=== PATIENT | female | born 1950 | race Caucasian/White ===

== ENCOUNTER 2017-08-29 18:24 | Emergency (ER) | payer OTHER, MEDICARE ==
[2017-08-29 20:29] VITALS: TEMP 210.9
--- NOTE | 2017-08-29 20:32 | EDPHY ---
H & P Time Seen by Provider: 08/29/17 19:20 HPI/ROS: HPI Esophageal pain. History of EGD. 67-year-old female by private vehicle. This patient reports that today at 2:30 p.m. she had an upper GI endoscopy by Dr. Victor Hugo Laurent [facility]. She reports that about 2 hr after this she ate some solid food as well as drink some liquids. She reports she was able to swallow these without significant difficulty but right after she swallowed them she developed a spasming pain in her esophagus which radiated up into her throat and neck. This was then resolved but repeated itself when went swallowing solids and liquids as above. She called the on-call food service aide was told to come to the emergency department to be evaluated for possible perforation. ROS: Constitutional: No fever, no chills. No weakness. Eyes: No discharge. No changes in vision. ENT: No sore throat. As above. Respiratory: No cough. No shortness of breath. Cardiac: No chest pain, no palpitations. As above. Gastrointestinal: No abdominal pain, no vomiting, no diarrhea. Genitourinary: No hematuria. No dysuria or increased frequency with urination. Musculoskeletal: No back pain. As above. No myalgias or arthralgias. Skin: No rashes. Neurological: No headache. No focal weakness or altered sensation. Past medical history: Esophageal problems, arthritis. Social history: Nonsmoker. Here by herself. No alcohol. Physical Exam: General Appearance: Alert, no distress. This patient is responding to questions appropriately and in full sentences. This patient appears well- hydrated and well-nourished. No voice changes. Eyes: Pupils equal and round no pallor or injection. No lid edema, erythema or injection. Respiratory: There are no retractions, lungs are clear to auscultation with good air movement bilaterally. Cardiovascular: Regular rate and rhythm. No murmur. Gastrointestinal: Abdomen is soft and nontender, no masses, bowel sounds normal. No focal tenderness at McBurney's point. No Harper sign. Neurological: Motor sensory function is grossly intact. Cranial nerves are normal. Gait is normal. Skin: Warm and dry, no rashes. Musculoskeletal: Neck is supple and nontender. No stridor on auscultation of her neck. Extremities are symmetrical. All joints range without pain or impingement. Psychiatric: No agitation. No depression. Database: EKG: Imaging: Chest x-ray PA and lateral; the cardiac mediastinal silhouette is unremarkable. No evidence of free air. No evidence of infiltrate or pneumothorax. No acute cardiopulmonary disease process noted. Interpreted by me. Procedures: Emergency department course: Vital signs reviewed. She is afebrile. Vital signs otherwise normal. 8:30 p.m., spoke with on-call food service aide for [facility], Dr. Echevarria, Dr. Echevarria pulled the patient's chart. The patient has a history of eosinophilic esophagitis. This classically causes pain after a dilation procedure which she had today. I discussed the results of her x-rays with Dr. Echevarria recommends liquid diet, Tylenol for pain. She will have her office get in touch with the patient tomorrow for follow-up. This plan was discussed with the patient. She does feel comfortable going home. Return to emergency department precautions were reviewed with her. All of her questions were answered. She was discharged in good condition. Differential Diagnosis: The differential diagnosis on this patient includes but is not limited to status post esophageal dilation with history of you eosinophilic esophagitis and esophageal spasm after procedure. Esophageal perforation, acute coronary syndrome unlikely. This represents a partial list of diagnoses considered. These considerations are based on history, physical exam, past history, reassessment and diagnostic testing. Smoking Status: Never smoked Constitutional: Initial Vital Signs Temperature (C) 37.7 C 08/29/17 18:33 Heart Rate 76 08/29/17 18:33 Respiratory Rate 20 08/29/17 18:33 Blood Pressure 133/84 H 08/29/17 18:33 O2 Sat (%) 93 08/29/17 18:33 O2 Delivery Mode Room Air Allergies/Adverse Reactions: Penicillins Allergy (Verified 08/29/17 18:32) Home Medications: Medication Instructions Recorded NK [No Known Home Meds] 08/29/17 Medical Decision Making - Diagnostics Imaging Results: Imaging Impressions Chest X-Ray 08/29/17 19:21 Impression: Nothing acute radiographically. Departure - Departure Disposition: Home, Routine, Self-Care Clinical Impression: Esophageal spasm, History of esophagogastroduodenoscopy (EGD) Condition: Good Instructions: Esophageal Spasm (ED) Additional Instructions: Read and follow provided instructions. Follow-up with your food service aide tomorrow for re-evaluation. They will call you for follow-up. Liquid Tylenol as directed for pain. Return to the emergency department for worsening symptoms, fever, vomiting or other serious concerns. Referrals: Victor Hugo Laurent MD, FACG [Medical Doctor] - As per Instructions
[2017-08-29 20:49] VITALS: BP 118/71; PULSE 65; RESP 16; O2SAT 93
== END 2017-08-29 20:49 | disposition home or self-care (01) ==
DX: K22.4 Dyskinesia of esophagus (principal); Z87.19 Personal history of other diseases of the digestive system

== ENCOUNTER → 2017-10-06 | Outpatient (CLI) | payer OTHER, MEDICARE | LOC: FIMAGING 10:57 | PROVIDERS: ATTEND Family Medicine | DX: Z12.31 Encounter for screening mammogram for malignant neoplasm of breast (principal) ==

== ENCOUNTER → 2018-08-02 | Outpatient (CLI) | payer OTHER, MEDICARE | LOC: BHFA 14:15 | PROVIDERS: ATTEND Internal Medicine Interventional Cardiology | DX: R07.9 Chest pain, unspecified (principal); I25.10 Atherosclerotic heart disease of native coronary artery without angina pectoris ==

== ENCOUNTER → 2018-08-08 | Outpatient (CLI) | payer OTHER, MEDICARE ==
[~2018-08-08] MED LIST: IOPAMIDOL (ISOVUE 370) 100 ML BTL IV ONE
== END ==
LOC: FIMAGING 08:21
PROVIDERS: ATTEND Internal Medicine Interventional Cardiology
DX: R91.1 Solitary pulmonary nodule (principal); I25.10 Atherosclerotic heart disease of native coronary artery without angina pectoris
CPT/HCPCS: 75574; Q9967; 82565-PO

== ENCOUNTER → 2018-11-20 | Outpatient (CLI) | payer OTHER, MEDICARE | LOC: FIMAGING 15:55 | PROVIDERS: ATTEND Family Medicine | DX: Z12.31 Encounter for screening mammogram for malignant neoplasm of breast (principal) ==